=== PATIENT | male | born 1985 | race American Indian/Alaskan Native ===

== ENCOUNTER 2019-04-06 16:01 | Emergency (ER) | payer MEDICAID ==
--- NOTE | 2019-04-06 16:29 | Emergency Department Report ---
Blank Doc - Documentation Documentation: This is a 33-year-old male that presents with n/v, generalized body aches and headache. This initial assessment/diagnostic orders/clinical plan/treatment(s) is/are subject to change based on patient's health status, clinical progression and re- assessment by fellow clinical providers in the ED. Further treatment and workup at subsequent clinical providers discretion. Patient/guardians urged not to elope from the ED as their condition may be serious if not clinically assessed and managed. Initial orders include: 1- Patient sent to [facility] for further evaluation and treatment 2- labs 3- UA
[2019-04-06 17:36] LABS: Basophils # (Auto) 0.1 K/mm3 (0.0-0.1); Basophils % (Auto) 1.4 % (0.0-1.8); Eosinophils # (Auto) 0.1 K/mm3 (0.0-0.4); Eosinophils % (Auto) 1.1 % (0.0-4.3); Hematocrit 39.2 % (35.5-45.6); Hemoglobin 13.2 gm/dl (11.8-15.2); Lymphocytes % (Auto) 39.3 % (13.4-35.0); Mean Corpuscular HGB Conc 34 % (32-34); Mean Corpuscular Volume 89 fl (84-94); Monocytes # (Auto) 0.4 K/mm3 (0.0-0.8); Monocytes % (Auto) 8.5 % (0.0-7.3); Platelet Count 338 K/mm3 (140-440); Red Blood Count 4.39 M/mm3 (3.65-5.03)
--- NOTE | 2019-04-06 17:45 | XRay Report ---
ABDOMINAL SERIES 04/06/2019 INDICATION / CLINICAL INFORMATION: n/v abd pain. COMPARISON: None available. FINDINGS: The bowel gas pattern is normal. No calcifications are identified projecting over the upper urinary tracts. Multiple phleboliths are seen in the pelvis. The PA chest x-ray shows no acute disease or evidence of pneumoperitoneum. IMPRESSION: No acute findings. Signer Name: Bharat Hogue MD Signed: 04/06/2019 5:41 PM Workstation Name: [id number]
[2019-04-06 17:58] LABS: Alanine Aminotransferase 8 units/L (7-56); Albumin 4.1 g/dL (3.9-5); BUN/Creatinine Ratio 7; Blood Urea Nitrogen 8 mg/dL (9-20); Calcium 9.5 mg/dL (8.4-10.2); Hemolysis Index 5
[2019-04-06] MEDS ORDERED: NACL 0.9% 1000 ML 1,000 ML IV ONE (19:24)
[2019-04-06] MEDS ORDERED: TORADOL IV ONE (19:24)
[2019-04-06] MEDS ORDERED: ZOFRAN IV ONE (19:24)
--- NOTE | 2019-04-06 20:42 | Emergency Department Report ---
ED N/V/D HPI - General Chief complaint: Nausea/Vomiting/Diarrhea Stated complaint: VOMIT/HEADACHE/BODY SORE Time Seen by Provider: 04/06/19 16:20 Source: patient Mode of arrival: Ambulatory Limitations: No Limitations - History of Present Illness MD complaint: nausea, vomiting, abdominal pain Onset/Timin -: week(s) Description of Vomiting: food contents Associated Abdominal Pain: Yes Location: LUQ, LLQ Radiation: none Severity: moderate Pain Scale: 4 Quality: cramping, other (burning ) Consistency: intermittent Improves with: none Worsens with: eating Associated Symptoms: malaise, nausea/vomiting. denies: fever/chills - Related Data Previous Rx's Medication Instructions Recorded Last Taken Type Dicyclomine [Bentyl] 10 mg PO QID #40 capsule 04/06/19 Unknown Rx Famotidine [Pepcid] 20 mg PO BID #60 tablet 04/06/19 Unknown Rx Ondansetron [Zofran Odt] 4 mg PO Q8HR PRN #12 tab.rapdis 04/06/19 Unknown Rx Allergies Allergy/AdvReac Type Severity Reaction Status Date / Time No Known Allergies Allergy Unverified 04/06/19 16:02 ED Review of Systems ROS: Stated complaint: VOMIT/HEADACHE/BODY SORE Other details as noted in HPI Constitutional: denies: chills, fever Eyes: denies: eye pain, eye discharge, vision change ENT: denies: ear pain, throat pain Respiratory: denies: cough, shortness of breath, wheezing Cardiovascular: denies: chest pain, palpitations Endocrine: no symptoms reported Gastrointestinal: abdominal pain, nausea, vomiting. denies: diarrhea, constipation, hematemesis, melena, hematochezia Genitourinary: denies: urgency, dysuria Musculoskeletal: denies: back pain, joint swelling, arthralgia Skin: denies: rash, lesions Neurological: denies: headache, weakness, paresthesias Psychiatric: denies: anxiety, depression Hematological/Lymphatic: denies: easy bleeding, easy bruising ED Past Medical Hx - Past Medical History Previous Medical History?: No - Surgical History Past Surgical History?: No - Medications Home Medications: Home Medications Medication Instructions Recorded Confirmed Last Taken Type Dicyclomine [Bentyl] 10 mg PO QID #40 capsule 04/06/19 Unknown Rx Famotidine [Pepcid] 20 mg PO BID #60 tablet 04/06/19 Unknown Rx Ondansetron [Zofran Odt] 4 mg PO Q8HR PRN #12 tab.rapdis 04/06/19 Unknown Rx ED Physical Exam - General Limitations: No Limitations General appearance: alert, in no apparent distress - Head Head exam: Present: atraumatic, normocephalic - Eye Eye exam: Present: normal appearance, PERRL, EOMI Pupils: Present: normal accommodation - ENT ENT exam: Present: normal orophraynx, mucous membranes moist, TM's normal bilaterally, normal external ear exam - Neck Neck exam: Present: normal inspection, full ROM. Absent: tenderness, meningismus, lymphadenopathy, thyromegaly - Respiratory Respiratory exam: Present: normal lung sounds bilaterally. Absent: respiratory distress, wheezes, stridor, chest wall tenderness - Cardiovascular Cardiovascular Exam: Present: regular rate, normal rhythm, normal heart sounds. Absent: systolic murmur, diastolic murmur, rubs, gallop - GI/Abdominal GI/Abdominal exam: Present: soft, tenderness (LUQ), normal bowel sounds. Absent: distended ( ), guarding, rebound, rigid, bruit, hernia - Expanded GI/Abdominal Exam Expanded GI/Abdominal exam: Absent: psoas sign, obturator sign, heel tap sign, Mohamud's sign, Rovsing's sign, tenderness at Mcburney's Point, ascites - Rectal Rectal exam: Present: deferred - Extremities Exam Extremities exam: Present: normal inspection, full ROM, normal capillary refill. Absent: tenderness, pedal edema, joint swelling, calf tenderness - Back Exam Back exam: Present: normal inspection, full ROM. Absent: tenderness, CVA tenderness (R), CVA tenderness (L), muscle spasm, paraspinal tenderness, vertebral tenderness, rash noted - Neurological Exam Neurological exam: Present: alert, oriented X3, CN II-XII intact, normal gait, reflexes normal. Absent: motor sensory deficit - Psychiatric Psychiatric exam: Present: normal affect, normal mood - Skin Skin exam: Present: warm, dry, intact, normal color. Absent: rash ED Course Vital Signs 04/06/19 16:04 Temperature 98 F Pulse Rate 65 Respiratory 18 Rate Blood Pressure 115/66 [Right] O2 Sat by Pulse 100 Oximetry ED Medical Decision Making - Lab Data Result diagrams: 04/06/19 17:27 04/06/19 17:27 Labs 04/06/19 04/06/19 17:27 17:27 WBC 5.2 RBC 4.39 Hgb 13.2 Hct 39.2 MCV 89 MCH 30 MCHC 34 RDW 15.0 Plt Count 338 Lymph % (Auto) 39.3 H [place] % (Auto) 8.5 H Eos % (Auto) 1.1 Baso % (Auto) 1.4 Lymph # 2.0 [place] # 0.4 Eos # 0.1 Baso # 0.1 Seg Neutrophils % 49.7 Seg Neutrophils # 2.6 Sodium 142 Potassium 4.2 Chloride 102.6 Carbon Dioxide 29 Anion Gap 15 BUN 8 L Creatinine 1.2 Estimated GFR > 60 BUN/Creatinine Ratio 7 Glucose 66 L Calcium 9.5 Total Bilirubin 0.40 AST 12 ALT 8 Alkaline Phosphatase 39 Total Protein 6.7 Albumin 4.1 Albumin/Globulin Ratio 1.6 Lipase 20 - Radiology Data Radiology results: report reviewed, image reviewed Ordering Physician: HAFSA ALBERTS NP Date of Service: 04/06/19 Procedure(s): XR abd series w cxr 1V Accession Number(s): [id number] cc: HAFSA ALBERTS NP Fluoro Time In Minutes: ABDOMINAL SERIES 04/06/2019 INDICATION / CLINICAL INFORMATION: n/v abd pain. COMPARISON: None available. FINDINGS: The bowel gas pattern is normal. No calcifications are identified projecting over the upper urinary tracts. Multiple phleboliths are seen in the pelvis. The PA chest x-ray shows no acute disease or evidence of pneumoperitoneum. IMPRESSION: No acute findings. Signer Name: Bharat Hogue MD Signed: 04/06/2019 5:41 PM Workstation Name: [id number] Transcribed By: BRIANA Dictated By: Bharat Hogue MD Electronically Authenticated By: Bharat Hogue MD Signed Date/Time: 04/06/191740 DD/ 38 TD/TT: - Medical Decision Making xray nonobstructive gas pattern, cbc, cmp, lipase normal, pt refuses ua, denies dysuria frequency or urgency , tolerating po intake without n/v there is no fever or chills, abd pain is improved, plan: dc to home follow up with pcp in 2- 3 days to home with rx for zofran, bentyl, pepcid return to ed if symptoms worsen. Critical care attestation.: If time is entered above; I have spent that time in minutes in the direct care o f this critically ill patient, excluding procedure time. ED Disposition Clinical Impression: Nausea and vomiting Qualifiers: Vomiting type: unspecified Vomiting Intractability: non-intractable Qualified Code(s): R11.2 - Nausea with vomiting, unspecified Disposition: DC-01 TO HOME OR SELFCARE Is pt being admited?: No Does the pt Need Aspirin: No Condition: Stable Instructions: Acute Nausea and Vomiting (ED), Abdominal Pain (ED), Diet for Ulcers and Gastritis (ED) Prescriptions: Dicyclomine [Bentyl] 10 mg PO QID #40 capsule Famotidine [Pepcid] 20 mg PO BID #60 tablet Ondansetron [Zofran Odt] 4 mg PO Q8HR PRN #12 tab.rapdis PRN Reason: Nausea And Vomiting Referrals: ABIMBOLA DOMINIQUE MD [Staff Physician] - 3-5 Days [facility] [Provider Group] - 3-5 Days Forms: Work/School Release Form(ED) Time of Disposition: 21:04
[2019-04-06 21:00] VITALS: BP 96/63
== END 2019-04-06 21:17 | disposition home or self-care (01) ==
LOC: ED 16:01
DX: R11.2 Nausea with vomiting, unspecified (principal); R10.9 Unspecified abdominal pain; Z79.899 Other long term (current) drug therapy
CPT/HCPCS: 36415; 74022; 80053; 83690; 85025; 96361; 96374; 96375; 99284; J1885; J2405; J7030